=== PATIENT | female | born 1950 | race Caucasian/White ===

== ENCOUNTER 2019-06-20 14:02 | Emergency (ER) | payer MEDICARE ==
[2019-06-20 14:12] VITALS: BP 165/69
--- NOTE | 2019-06-20 14:37 | XRAY Report ---
Reason: Trauma Procedure Date: 06/20/2019 Accession Number: [id number] / [id number] Procedure: XR - Foot 3 View LT CPT Code: Addended Final Report FULL RESULT: EXAM: LEFT FOOT RADIOGRAPHY EXAM DATE: 06/20/2019 02:25 PM. CLINICAL HISTORY: Trauma. COMPARISON: None. TECHNIQUE: 3 views. FINDINGS: Bones: The bones are qualitatively osteopenic; this limits evaluation for underlying fractures or masses. Within these limitations there are rimlike calcifications surrounding the first metatarsophalangeal joint without convincing associated osseous destructive change. No fractures or bone lesions. No convincing osseous destructive lesion in the heel region detected. Joints: Normal. No subluxations. Soft Tissues: Atherosclerotic changes are noted. No soft tissue gas in the region of the heel. IMPRESSION: Increased periarticular calcifications in the region of the first metatarsophalangeal joint. Osteopenia. No convincing soft tissue gas or osseous destruction in the region of the heel. [facility] ADDENDUM: 06/20/19 16:21 This addendum is to void the previously issued report. Please disregard the report in its entirety. The images corresponding to the filed report do not belong to this patient and were submitted incorrectly to the imaging and archiving system for interpretation.
--- NOTE | 2019-06-20 15:25 | ED Physician Documentation ---
PD HPI LOWER EXT INJURY - Stated complaint Stated Complaint: LT TOE INJ - Chief complaint Chief Complaint: Ext Problem - History obtained from History obtained from: Patient - History of Present Illness PD HPI LOW EXT INJURY LOCATION: Left, Toe Type of injury: Blunt / blow (stubbed 2nd toe on ottoman yesterday, with bruising and swelling of the toe.) Where injury occurred: Home Timing - onset: Yesterday Timing - details: Abrupt onset, Still present Worsened by: Moving, Palpating Associated symptoms: Swelling, Discolored (bruising proximal part of toe). No: Weakness, Numbness Contributing factors: No: Anticoagulated Review of Systems Skin: denies: Abrasion (s), Laceration (s) Neurologic: denies: Focal weakness, Numbness PD PAST MEDICAL HISTORY - Past Medical History Cardiovascular: Hypertension Respiratory: None Neuro: None Endocrine/Autoimmune: Type 2 diabetes - Present Medications Home Medications: Ambulatory Orders Medication Instructions Recorded Confirmed amLODIPine [Norvasc] 10 mg PO ONCE 06/20/19 06/20/19 metFORMIN [Glucophage] 500 mg PO BID 06/20/19 06/20/19 - Allergies Allergies/Adverse Reactions: Allergies Allergy/AdvReac Type Severity Reaction Status Date / Time Sulfa (Sulfonamide Allergy Rash Verified 06/20/19 14:11 Antibiotics) PD ED PE NORMAL - Vitals Vital signs reviewed: Yes - General General: Alert and oriented X 3, No acute distress, Well developed/nourished - Derm Derm: Normal color, Warm and dry - Extremities Extremities: Other (left 2nd toe with bruising, swelling, tender at PIP area, and slight lateral tilting of the distal segment. Normal sensation and cap refill at tip of toe.) - Neuro Neuro: Alert and oriented X 3, No motor deficit, No sensory deficit Results - Vitals Vitals: Oxygen O2 Source Room air - Rads (name of study) toes Radiology: Prelim report reviewed (2nd toe, proximal phalanx fracture, minimally angulated. ), See rad report PD MEDICAL DECISION MAKING - ED course Complexity details: reviewed results, considered differential, d/w patient Departure - Departure Disposition: 01 Home, Self Care Clinical Impression: Toe fracture, left Qualifiers: Encounter type: initial encounter Toe: lesser toe Fracture type: closed Phalanx: proximal Fracture alignment: nondisplaced Qualified Code(s): S92.515A - Nondisplaced fracture of proximal phalanx of left lesser toe(s), initial encounter for closed fracture Condition: Stable Record reviewed to determine appropriate education?: Yes Instructions: ED Fx Toe Closed Follow-Up: Augusto Banks MD [Primary Care Provider] - [facility] [Provider Group] Comments: Firm soled shoe to reduce some movement of the toes. You can kera tape it or anchor tape the toe to reduce the motion of it. Anti-inflammatories such as ibuprofen or naproxen twice daily. Add Tylenol if needed for pains. Ice elevate and rest the toe often to reduce swelling over the next couple of days. This will take about 3 to 4 weeks to heal. Follow-up with your primary care or orthopedics in about 1-1/2 to 2 weeks to ensure its healing well enough at the time. Discharge Date/Time: 06/20/19 16:51
--- NOTE | 2019-06-23 07:18 | XRAY Report ---
Reason: FOOT PAIN Procedure Date: 06/20/2019 Accession Number: [id number] / [id number] Procedure: XR - Foot 3 View LT CPT Code: Final Report FULL RESULT: EXAM: LEFT FOOT RADIOGRAPHY EXAM DATE: 06/20/2019 03:45 PM. CLINICAL HISTORY: FOOT PAIN.Stubbed toe on otoman yesterday. Second toe bruising and swelling. COMPARISON: None. TECHNIQUE: 3 views. FINDINGS: Bones: Moderate spurring inferior calcaneal tuberosity. Oblique fracture distal metaphysis proximal phalanx second toe with 1.4 mm lateral displacement distal fracture fragment and 10 degree fracture angulation oblique view. Mild spurring base proximal phalanx second toe. Joints: Hallux valgus 16 degrees. Primus metatarsus angle 11 degrees. Mild degenerative changes first metatarsal-phalangeal joint. Soft Tissues: Soft tissue swelling second toe. IMPRESSION: Oblique fracture distal metaphysis proximal phalanx second toe with 1.4 mm lateral displacement distal fracture fragment. [facility]
== END 2019-06-20 16:51 | disposition home or self-care (01) ==
LOC: ED 14:02
DX: S92.512A Displaced fracture of proximal phalanx of left lesser toe(s), initial encounter for closed fracture (principal); W22.8XXA Striking against or struck by other objects, initial encounter; Y92.009 Unspecified place in unspecified non-institutional (private) residence as the place of occurrence of the external cause; I10 Essential (primary) hypertension; E11.9 Type 2 diabetes mellitus without complications; Z79.84 Long term (current) use of oral hypoglycemic drugs
CPT/HCPCS: 99283

== ENCOUNTER 2020-12-20 09:30 | Outpatient (CLI) | payer MEDICARE | END 2020-12-20 23:59 | disposition home or self-care (01) | LOC: LAB.S 09:30 | PROVIDERS: ATTEND Physician Assistant Medical | DX: R07.0 Pain in throat (principal); Z20.822 Contact with and (suspected) exposure to COVID-19 ==